=== PATIENT | female | born 1975 | race Caucasian/White ===

== ENCOUNTER → 2018-06-21 | Outpatient (CLI) | payer BC, OTHER | LOC: EMCIMAGING 08:13 | PROVIDERS: ATTEND Physician Assistant Medical | DX: Z12.31 Encounter for screening mammogram for malignant neoplasm of breast (principal) | CPT/HCPCS: 77067-PN ==

== ENCOUNTER → 2018-06-28 | Outpatient (CLI) | payer BC, OTHER | LOC: BRMIMAGING 13:10 | PROVIDERS: ATTEND Physician Assistant Medical | DX: N63.22 Unspecified lump in the left breast, upper inner quadrant (principal); N63.23 Unspecified lump in the left breast, lower outer quadrant | CPT/HCPCS: 76641-PO ==